=== PATIENT | male | born 1990 | race Caucasian/White ===

== ENCOUNTER 2017-01-29 22:45 | Emergency (ER) | payer BC, OTHER ==
--- NOTE | ~2017-01-29 | CR141 ---
[facility] A Service of [facility] & [facility] RADIOLOGY TEXT RESULTS PATIENT: ANUEL DEVINE LOCATION: [place] : [birth year] UNIT #: [id number] AGE: [address]: Clark Remy MD SEX: M ORDER DR: [id number] [facility] [address] [place], [place] [address] [id number] MR#: [id number] Acc #: [id number] NAME: ANUEL DEVINE : 1990 SEX: M STUDY DATE/TIME: 01/29/2017 22:29 UNIT: [facility] ROOM: STUDY DESCRIPTION: CR Hand Min 3 Views Lt Attending Physician: Clark Remy M.D. Ordering Physician: Clark eRmy M.D. Primary Care Physician: Chan Gonzalez M.D. MEDICAL IMAGING REPORT This report is preliminary unless electronic signature is present EXAM Left hand, 01/29 at 22:29 INDICATIONS Hand pain after blunt trauma today. FINDINGS 4 views of the left hand were obtained. No fracture or malalignment is seen. Soft tissues are unremarkable. IMPRESSION Negative left hand. Dictated by... Ankur Aranda Jr., M.D. THIS IS AN ELECTRONICALLY VERIFIED REPORT Ankur Aranda Jr., M.D. at 01/30/2017 5:57 AM NILE/yolie TD: 01/30/2017 03:05 JOB #: [id number] MEDICAL IMAGING REPORT Page 1 of 1 COPY
[~2017-01-29 22:45] MED LIST: ATIVAN PO; CERTAGEN PO; CLARITIN10 MG PO; FAMOTIDINE PO; INVEGA; LAMICTAL PO; MELATONIN3 MG PO; MIRALAX255 GM PO; NASONEX17 GM; PAXIL PO; SINGULAIR PO; TRILEPTAL PO; [UNRECOGNIZED DRUG - OTHER]
== END 2017-01-29 23:24 | disposition home or self-care (01) ==
LOC: CED 22:45
DX: S01.81XA Laceration without foreign body of other part of head, initial encounter (principal); S60.221A Contusion of right hand, initial encounter; Z88.8 Allergy status to other drugs, medicaments and biological substances; Z79.899 Other long term (current) drug therapy; X58.XXXA Exposure to other specified factors, initial encounter
CPT/HCPCS: 73130; 99283

== ENCOUNTER → 2017-05-14 | Outpatient (CLI) | payer BC, OTHER ==
--- NOTE | ~2017-05-14 | BD1 ---
[facility] A Service of [facility] & [facility] RADIOLOGY TEXT RESULTS PATIENT: ANUEL DEVINE LOCATION: [facility] : [birth year] UNIT #: [id number] AGE: [address]: KANNAN DELEON SEX: M ORDER DR: [id number] [facility] [address] [place], [place] [address] [id number] O MR#: [id number] Acc #: [id number] NAME: ANUEL DEVINE : 1990 SEX: M STUDY DATE/TIME: 05/14/2017 13:51 UNIT: [facility] ROOM: STUDY DESCRIPTION: BD Dexa Bone Dens 1+ Site Attending Physician: Kannan Deleon M.D. Ordering Physician: Kannan Deleon M.D. Primary Care Physician: Chan Gonzalez M.D. MEDICAL IMAGING REPORT This report is preliminary unless electronic signature is present EXAM DXA scan 05/14/2017 HISTORY Osteoporosis. Anticonvulsant medication, clonazepam. Thyroid medication Levothyroxine use. Increased risk for osteoporosis from drug therapy. FINDINGS Bone mineral density in the lumbar spine from L1-L4 is 1.051 g/cm2 which is 0.4 standard deviations below the mean when compared to the young adult reference population which is within the range of normal. This is 0.4 standard deviations below the mean when compared to the age-matched population. Bone mineral density in the left femoral neck was 0.798 g/cm2 which is 1 standard deviation below the mean when compared to the young adult reference population which is characteristic of osteopenia. This is 0.9 standard deviations below the mean when compared to the age-matched population. IMPRESSION Bone mineral density in the lumbar spine within the range of normal and within the left hip characteristic of osteopenia. Dictated by... Jung Rowan M.D. THIS IS AN ELECTRONICALLY VERIFIED REPORT Jung Rowan M.D. at 05/15/2017 10:18 AM WYATT/mary TD: 05/14/2017 17:25 JOB #: [id number] [facility] A Service of [facility] & [facility] RADIOLOGY TEXT RESULTS PATIENT: ANUEL DEVINE LOCATION: [facility] : [birth year] UNIT #: [id number] AGE: [address]: KANNAN DELEON SEX: M ORDER DR: MEDICAL IMAGING REPORT Page 1 of 1 COPY
== END | disposition home or self-care (01) ==
LOC: CWCC 13:28
DX: M81.0 Age-related osteoporosis without current pathological fracture (principal)
CPT/HCPCS: 77080